=== PATIENT | female | born 1960 | race Hispanic/Latino ===

== ENCOUNTER 2020-10-29 09:40 | Outpatient (CLI) | payer OTHER ==
--- NOTE | 2020-10-29 10:25 | RAD ---
PA AND LATERAL CHEST: Date: 10/29/2020 HISTORY: Shortness of breath. Patient had COVID in February. Chest tightness since then. FINDINGS: Heart size within normal limits. Mediastinal structures appear unremarkable. Lungs are clear of any i nfiltrates. No significant bony findings. IMPRESSION: No active intrathoracic disease. POS: [facility]
== END 2020-10-29 09:41 | disposition home or self-care (01) ==
LOC: BICRAD 09:40
PROVIDERS: ATTEND Family Medicine
DX: R06.02 Shortness of breath (principal)
CPT/HCPCS: 71046

== ENCOUNTER 2024-02-24 11:55 | Outpatient (CLI) | payer MEDICARE | END 2024-02-24 11:56 | disposition home or self-care (01) | LOC: BICMAMMO 11:55 | PROVIDERS: ATTEND Family Medicine | DX: Z12.31 Encounter for screening mammogram for malignant neoplasm of breast (principal); Z80.3 Family history of malignant neoplasm of breast; Z91.89 Other specified personal risk factors, not elsewhere classified | CPT/HCPCS: 77063; 77067 ==